=== PATIENT | male | born 1965 ===

== ENCOUNTER 2017-01-30 16:44 | Emergency (ER) | payer MEDICARE ==
[2017-01-30 17:01] VITALS: BP 135/86; PULSE 120; RESP 16; TEMP 98.7; O2SAT 100
--- NOTE | 2017-01-30 17:17 | ED PDOC ---
HPI: Back Time Seen by Provider: 01/30/17 17:15 Chief Complaint (Nursing): Back Pain Chief Complaint (Provider): BACK PAIN History Per: Patient (51 Y/O MALE WITH H/O BACK PAIN HERE FOR INCREASED PAIN DUE TO RUNNING OUT OF PAIN MEDICATION. STATES HE TOOK GABAPENTIN PRIOR TO ARRIVAL BUT WITHOUT RELIEF OF PAIN. HAS BEEN FOLLOWING WITH DR. MANOLO DUMONT FOR BACK PAIN AND PLANS TO F/U WITH PAIN MANAGEMENT FOR FOLLOW UP. STATES BACK PAIN IS FROM INJURY INITIALLY 2009.) Past Medical History Reviewed: Historical Data, Nursing Documentation, Vital Signs Vital Signs: Last Vital Signs Temp 98.7 F 01/30/17 16:57 Pulse 120 H 01/30/17 16:57 Resp 16 01/30/17 16:57 BP 135/86 01/30/17 16:57 Pulse Ox 100 01/30/17 16:57 - Family History Family History: States: No Known Family Hx - Home Medications Home Medications: Ambulatory Orders Medication Instructions Recorded Meloxicam [Mobic] 7.5 mg PO BID PRN #14 tab 01/30/17 - Allergies Allergies/Adverse Reactions: Allergies Allergy/AdvReac Type Severity Reaction Status Date / Time No Known Allergies Allergy Verified 09/21/12 09:25 Review of Systems ROS Statement: Except As Marked, All Systems Reviewed And Found Negative Musculoskeletal: Positive for: Back Pain Physical Exam - Reviewed Nursing Documentation Reviewed: Yes Vital Signs Reviewed: Yes - Physical Exam Appears: Positive for: Well, Non-toxic, No Acute Distress Head Exam: Positive for: ATRAUMATIC, NORMAL INSPECTION, NORMOCEPHALIC Skin: Positive for: Normal Color, Warm, DRY Eye Exam: Positive for: EOMI, Normal appearance, PERRL ENT: Positive for: Normal ENT Inspection Neck: Positive for: Normal, Painless ROM Cardiovascular/Chest: Positive for: Regular Rate, Rhythm Respiratory: Positive for: CNT, Normal Breath Sounds Gastrointestinal/Abdominal: Positive for: Normal Exam, Bowel Sounds, Soft Back: Positive for: Normal Inspection, Vertebral Tenderness (MILD PARALUMBAR TENDERNESS NOTED) Extremity: Positive for: Normal ROM Neurologic/Psych: Positive for: Alert, Oriented - ECG O2 Sat by Pulse Oximetry: 100 - Progress ED Course And Treament: TORADOL 30 MG IM X 1 DOSE Disposition - Clinical Impression Clinical Impression: Back pain - Patient ED Disposition Is Patient to be Admitted: No - Disposition Referrals: [facility] [Outside] Disposition: Routine/Home Disposition Time: 17:17 Condition: FAIR Prescriptions: Meloxicam [Mobic] 7.5 mg PO BID PRN #14 tab PRN Reason: Pain, Moderate (4-7) Instructions: Chronic Back Pain (ED)
== END 2017-01-30 18:05 | disposition home or self-care (01) ==
LOC: H.ER 16:44
DX: M54.9 Dorsalgia, unspecified (principal)
CPT/HCPCS: 96372; 99282; J1885

== ENCOUNTER 2017-09-29 14:16 | Emergency (ER) | payer MEDICARE ==
[2017-09-29 14:24] VITALS: O2SAT 100
[2017-09-29] MEDS ORDERED: Naproxen 500 MG TAB PO STA (14:55)
[2017-09-29] MEDS ORDERED: Naproxen 500 MG TAB PO ONE (15:14)
--- NOTE | 2017-09-29 15:18 | ED PDOC ---
Upper Extremity Pain/Injury Time Seen by Provider: 09/29/17 14:37 Chief Complaint (Nursing): Upper Extremity Problem/Injury Chief Complaint (Provider): Left shoulder pain History Per: Patient History/Exam Limitations: no limitations Onset/Duration Of Symptoms: Days Current Symptoms Are (Timing): Still Present Quality: "Pain" Additional History Per: Patient Additional Complaint(s): 51yo male, presents to ED for evaluation of left shoulder pain present for the past 2 weeks. Patient states he tripped on an uneven side walk and landed on his left shoulder. He denies any other injuries, trauma, weakness, numbness, head injury, loss of consciousness, and offers no other medical complaints. Past Medical History Reviewed: Historical Data, Nursing Documentation, Vital Signs Vital Signs: Last Vital Signs Temp 98.9 F 09/29/17 14:19 Pulse 64 09/29/17 14:19 Resp 18 09/29/17 14:19 BP 184/95 H 09/29/17 14:19 Pulse Ox 100 09/29/17 14:19 - Medical History PMH: No Chronic Diseases - Surgical History Surgical History: No Surg Hx - Family History Family History: States: No Known Family Hx - Home Medications Home Medications: Ambulatory Orders Medication Instructions Recorded Meloxicam [Mobic] 7.5 mg PO BID PRN #14 tab 01/30/17 Meloxicam [Mobic] 15 mg PO DAILY PRN #30 tab 09/29/17 - Allergies Allergies/Adverse Reactions: Allergies Allergy/AdvReac Type Severity Reaction Status Date / Time No Known Allergies Allergy Verified 09/29/17 14:24 Review of Systems Cardiovascular: Negative for: Chest Pain Musculoskeletal: Positive for: Shoulder Pain (left) Neurological: Negative for: Weakness, Numbness, Headache, Other (loss of consciousness) Physical Exam - Reviewed Nursing Documentation Reviewed: Yes Vital Signs Reviewed: Yes - Physical Exam Comments: GENERAL APPEARANCE: Patient is awake, alert, oriented x 3, in no acute distress. SKIN: Warm, dry; (-) cyanosis. SHOULDER: No obvious deformity, +tenderness and swelling to left AC joint. Unable to abduct secondary to pain. Elbow, wrist: (+) Full ROM, no deformity. Neurovascular sensations intact. NEURO AND PSYCH: Mental status as above. - ECG O2 Sat by Pulse Oximetry: 100 (RA) Pulse Ox Interpretation: Normal Medical Decision Making Medical Decision Making: Impression: Left shoulder pain Plan: -- Naproxen 500mg PO -- XR left shoulder 1527 XR left shoulder: +calcifications, no fracture, no dislocation, as read by PA. Patient advised that official radiology read of XR is still pending and will call the patient if there is any discrepancy within 24 hours. Based on history, exam and diagnostic results plan will be for discharge home with follow up with orthopedist. Sling applied. Advised RICE to L shoulder. Repeat P 81 BP 137/84. Advised to follow up with orthopedist without fail. Advised to take medication as prescribed. Return to the emergency room at any time for any new or worsening symptoms. Patient states he fully agrees with and understands discharge instructions. States that he agrees with the plan and disposition. Verbalized and repeated discharge instructions and plan. I have given the patient opportunity to ask any additional questions. Scribe Attestation: Documented by Lesia Medellin, acting as a scribe for KHAI Khoury Provider Scribe Attestation: All medical record entries made by the Scribe were at my direction and personally dictated by me. I have reviewed the chart and agree that the record accurately reflects my personal performance of the history, physical exam, medical decision making, and the department course for this patient. I have also personally directed, reviewed, and agree with the discharge instructions and disposition. Disposition - Clinical Impression Clinical Impression: Shoulder pain, Tendonitis - Patient ED Disposition Is Patient to be Admitted: No Counseled Patient/Family Regarding: Studies Performed, Diagnosis, Need For Followup, Rx Given - Disposition Referrals: Alan Ruby III, MD [Staff Provider] - Disposition: Routine/Home Disposition Time: 15:15 Condition: IMPROVED Additional Instructions: Take medication as prescribed. Rest, ice, wear sling for comfort. Follow up with ortho referral for further evaluation. Prescriptions: Meloxicam [Mobic] 15 mg PO DAILY PRN #30 tab PRN Reason: Pain, Moderate (4-7) Instructions: Tendonitis (DC), Shoulder Pain (DC) Forms: [email or web address] (Tanzanian) - PA / ANIMAL CONTROL OFFICER / Resident Statement MD/DO has reviewed & agrees with the documentation as recorded.
--- NOTE | 2017-09-29 15:22 | RAD ---
PROCEDURE: Radiographs of the Left Shoulder HISTORY: pain COMPARISON: No prior. FINDINGS: BONES: There is no acute displaced fracture or bone destruction. Bone alignment is normal. There are old fracture deformities in the acromion process and head of the humerus. JOINTS: There is mild degenerative osteoarthrosis in the acromioclavicular joint. The glenohumeral joint is normal. SOFT TISSUES: Normal. OTHER FINDINGS: None. IMPRESSION: No acute fracture or dislocation.
[2017-09-29 15:40] VITALS: BP 137/84; PULSE 81; RESP 15; TEMP 98.1
== END 2017-09-29 15:40 | disposition home or self-care (01) ==
LOC: H.ER 14:16
DX: M25.512 Pain in left shoulder (principal); W19.XXXA Unspecified fall, initial encounter; Y92.480 Sidewalk as the place of occurrence of the external cause; M75.22 Bicipital tendinitis, left shoulder

== ENCOUNTER 2017-11-22 02:20 | Emergency (ER) | payer MEDICARE ==
[2017-11-22 02:31] VITALS: RESP 18
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
[2017-11-22] MEDS: PROPARACAINE/FLUORESCEIN SOD 100 DROP/5 ML BOTTLE OS STA (05:26)
[2017-11-22 06:26] VITALS: BP 144/96; PULSE 55; TEMP 98.6
--- NOTE | 2017-11-22 11:03 | CT ---
Date of service: 11/22/2017 PROCEDURE: CT HEAD WITHOUT CONTRAST. HISTORY: head injury COMPARISON: None available. TECHNIQUE: Axial computed tomography images were obtained through the head/brain without intravenous contrast. Radiation dose: Total exam DLP = 836.76 mGy-cm. This CT exam was performed using one or more of the following dose reduction techniques: Automated exposure control, adjustment of the mA and/or kV according to patient size, and/or use of iterative reconstruction technique. FINDINGS: HEMORRHAGE: No intracranial hemorrhage. BRAIN: There are minimal chronic microangiopathic changes. There is no mass, mass effect or abnormal extra-axial fluid collection. There is no territorial infarction. The midline sagittal structures are normal. VENTRICLES: There is mild age advanced global parenchymal volume loss and proportionate enlargement of the ventricles and cortical sulci. CALVARIUM: There is no calvarial fracture or extracranial soft tissue swelling. PARANASAL SINUSES: Predominantly clear. MASTOID AIR CELLS: Predominantly clear. OTHER FINDINGS: None. IMPRESSION: No acute intracranial abnormality. Minimal chronic microangiopathic changes and mild global parenchymal volume loss, advanced for the patient's age. A preliminary report was provided by [employer] services.
--- NOTE | 2017-11-22 11:08 | CT ---
Date of service: 11/22/2017 PROCEDURE: CT MAXILLOFACIAL BONES WITHOUT CONTRAST HISTORY: facial injury COMPARISON: None available. TECHNIQUE: Contiguous axial CT images of the maxillofacial bones were obtained. Coronal and sagittal reformats were generated. Radiation dose: Total exam DLP = 730.88 mGy-cm. This CT exam was performed using one or more of the following dose reduction techniques: Automated exposure control, adjustment of the mA and/or kV according to patient size, and/or use of iterative reconstruction technique. FINDINGS: NASAL BONES: Acute mildly displaced fracture in the left nasal bone with overlying soft tissue swelling. The right nasal bone is intact. ORBITS: The globes are symmetric. No evidence for orbital fracture, lens dislocation are orbital hemorrhage. PARANASAL SINUSES/ MASTOIDS: The frontal sinuses are aplastic. There is moderate mucosal thickening in the left ethmoid air cells. The maxillary sinuses are clear. Minimal mucosal thickening in the sphenoid sinus. MAXILLA: No acute maxillofacial fracture. MANDIBLE/ TEMPOROMANDIBULAR JOINTS: No acute fracture or dislocation. SKULL BASE: Unremarkable. TEMPORAL BONES: Middle ears and mastoid grossly unremarkable. OTHER FINDINGS: None. IMPRESSION: Acute mildly displaced fracture in the left nasal bone with overlying soft tissue swelling. No acute orbital or maxillofacial fracture. A preliminary report was provided by [facility] services.
[2017-11-23 02:21] VITALS: O2SAT 98
== END 2017-11-22 06:39 ==
LOC: H.ER 02:20
DX: S09.90XA Unspecified injury of head, initial encounter (principal); S02.2XXA Fracture of nasal bones, initial encounter for closed fracture; H11.32 Conjunctival hemorrhage, left eye; Y04.0XXA Assault by unarmed brawl or fight, initial encounter; Y92.89 Other specified places as the place of occurrence of the external cause; F43.20 Adjustment disorder, unspecified

== ENCOUNTER 2017-11-24 15:40 | Emergency (ER) | payer MEDICARE ==
[2017-11-24 15:47] VITALS: RESP 17; TEMP 97.6
[2017-11-24] MEDS ORDERED: Naloxone 0.4 mg/ml Inj (Adult) IM STA (15:50)
[2017-11-24] MEDS ORDERED: Naloxone 0.4 mg/ml Inj (Adult) ONE (16:15)
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
[2017-11-24 18:52] VITALS: BP 131/72; PULSE 88; O2SAT 98
== END 2017-11-24 18:52 | disposition home or self-care (01) ==
LOC: H.ER 15:40
DX: F11.10 Opioid abuse, uncomplicated (principal); F17.200 Nicotine dependence, unspecified, uncomplicated
CPT/HCPCS: 96372; 99283; J2310